=== PATIENT | female | born 1975 | race Caucasian/White ===

== ENCOUNTER 2017-12-14 13:46 | Emergency (ER) | payer MEDICAID, SELFPAY ==
[~2017-12-14] VITALS: Ht 154.9 cm; Wt 65.1 kg
[2017-12-14] MEDS ORDERED: KETOROLAC 30 MG/1 ML ONE (14:13)
[2017-12-14] MEDS ORDERED: ONDANSETRON ODT 4 MG ONE (14:13)
[2017-12-14] MEDS ORDERED: FAMOTIDINE 20 MG/2 ML ONE (14:21)
[2017-12-14] MEDS ORDERED: ONDANSETRON 2MG/ML, 2ML IVPush ONE (14:30)
[2017-12-14] MEDS ORDERED: KETOROLAC 30 MG/1 ML IVPush ONE (14:30)
[2017-12-14] MEDS ORDERED: SODIUM CHLORIDE 0.9% 1,000ML IVBOLUS ONE (14:30)
[2017-12-14] MEDS ORDERED: SODIUM CHLORIDE FLUSH 10ML SYR IVF ONE (14:30)
[2017-12-14] MEDS ORDERED: FAMOTIDINE 20 MG/2 ML IVP ONE (14:30)
[2017-12-14] MEDS ORDERED: ONDANSETRON ODT 4 MG PO ONE (14:30)
[2017-12-14 15:03] LABS: BASOPHILS # (AUTO) 0.11 x10^3/uL (0-0.1); BASOPHILS % (AUTO) 1 % (0-1); EOSINOPHILS # (AUTO) 0.28 x10^3/uL (0-0.4); EOSINOPHILS % (AUTO) 3 % (1-7); LYMPHOCYTES # (AUTO) 2.33 x10^3/uL (1-3.4); LYMPHOCYTES % (AUTO) 25 % (22-44); MD NO; MEAN CORPUSCULAR HEMOGLOBIN 27.1 pg (27.0-34.8); MEAN CORPUSCULAR HGB CONC 32.9 g/dL (32.4-35.8); MEAN CORPUSCULAR VOLUME 82.4 fL (80-100); MEAN PLATELET VOLUME 7.3 fL (7.4-10.4); MONOCYTES # (AUTO) 0.49 x10^3/uL (0.2-0.8); MONOCYTES % (AUTO) 5 % (2-9); NEUTROPHILS # (AUTO) 6.04 x10^3/uL (1.8-6.8); NEUTROPHILS % (AUTO) 65 % (42-75); PLATELET COUNT 415 x10^3/uL (130-400); RED BLOOD COUNT 4.06 x10^6/uL (3.82-5.3); RED CELL DISTRIBUTION WIDTH 13.7 % (9.6-15.2)
[2017-12-14 15:09] LABS: ALANINE AMINOTRANSFERASE 16 U/L (12-78); ALBUMIN 3.2 g/dL (3.4-5.0); ANION GAP 8 mmol/L (5-15); CALCIUM 8.1 mg/dL (8.5-10.1); CHLORIDE 105 mmol/L (98-107); CREATININE 0.86 mg/dL (0.55-1.02)
[2017-12-14 15:13] LABS: ALKALINE PHOSPHATASE 68 U/L (45-117); BILIRUBIN,TOTAL 0.3 mg/dL (0.2-1.0); TOTAL PROTEIN 7.2 g/dL (6.4-8.2)
[2017-12-14 16:03] LABS: MICROSCOPIC AUTO
[2017-12-14 16:06] LABS: CULTURE INDICATED? YES
[2017-12-14 16:11] VITALS: BP 103/63
[2017-12-14] MEDS ORDERED: ACETAMINOPHEN 500 MG TABLET PO ONE (16:30)
[2017-12-14] MEDS ORDERED: ACETAMINOPHEN 500 MG TABLET ONE (16:31)
== END 2017-12-14 16:45 | disposition home or self-care (01) ==
LOC: ED 15:28
DX: R11.2 Nausea with vomiting, unspecified (principal); G44.031 Episodic paroxysmal hemicrania, intractable; N30.00 Acute cystitis without hematuria; R63.0 Anorexia
CPT/HCPCS: 36415; 80053; 81001; 83690; 84703; 85025; 87077; 87086; 87186; 96361; 96374; 96375; 99284; J1885; J7030; S0028

== ENCOUNTER 2019-04-25 14:50 | Emergency (ER) | payer MEDICAID, OTHER ==
[~2019-04-25] VITALS: Ht 157.5 cm; Wt 54.0 kg
[2019-04-25 15:02] VITALS: BP 109/70
[2019-04-25] MEDS ORDERED: ASPIRIN 81 MG TABLET CHEW PO ONE (16:00)
[2019-04-25 16:15] LABS: BASOPHILS # (AUTO) 0.04 x10^3/uL (0-0.1); BASOPHILS % (AUTO) 0 % (0-1); EOSINOPHILS # (AUTO) 0.17 x10^3/uL (0-0.4); EOSINOPHILS % (AUTO) 2 % (1-7); LYMPHOCYTES # (AUTO) 1.99 x10^3/uL (1-3.4); LYMPHOCYTES % (AUTO) 24 % (22-44); MD NO; MEAN CORPUSCULAR HEMOGLOBIN 25.6 pg (27.0-34.8); MEAN CORPUSCULAR HGB CONC 31.7 g/dL (32.4-35.8); MEAN CORPUSCULAR VOLUME 80.8 fL (80-100); MEAN PLATELET VOLUME 6.7 fL (7.4-10.4); MONOCYTES # (AUTO) 0.78 x10^3/uL (0.2-0.8); MONOCYTES % (AUTO) 9 % (2-9); NEUTROPHILS # (AUTO) 5.39 x10^3/uL (1.8-6.8); NEUTROPHILS % (AUTO) 65 % (42-75); PLATELET COUNT 386 x10^3/uL (130-400); RED CELL DISTRIBUTION WIDTH 15.5 % (9.6-15.2)
[2019-04-25 16:28] LABS: ALBUMIN 3.2 g/dL (3.4-5.0); ANION GAP 4 mmol/L (5-15); CALCIUM 8.3 mg/dL (8.5-10.1); CHLORIDE 108 mmol/L (98-107); CREATININE 0.76 mg/dL (0.55-1.02)
[2019-04-25 16:32] LABS: TROPONIN I < 0.015 ng/mL (0.000-0.045)
== END 2019-04-25 16:55 | disposition home or self-care (01) ==
LOC: ED 15:33
DX: R07.89 Other chest pain (principal); F41.1 Generalized anxiety disorder; F17.200 Nicotine dependence, unspecified, uncomplicated
CPT/HCPCS: 36415; 71045; 80048; 82040; 84484; 85025; 93005; 99284

== ENCOUNTER 2019-11-21 10:00 | Emergency (ER) | payer OTHER ==
[~2019-11-21] VITALS: Ht 154.9 cm; Wt 61.0 kg
[2019-11-21] MEDS ORDERED: DIPH,PERTUSS(ACELL),TET VAC/PF 0.5 ML IM-VACC ONE ×2 (10:15→10:30)
[2019-11-21] MEDS ORDERED: NEOSPORIN OINT. PKT 1 PACKET ONE ×2 (10:22→10:35)
--- NOTE | 2019-11-21 10:24 | NUR ---
PT MEDICATED PER ORDERS. PT TO IMAGING.
--- NOTE | 2019-11-21 10:52 | NUR ---
PT'S WD CLEANED PER ORDERS. BACITRACIN PLACED PER ORDERS.
[2019-11-21] MEDS ORDERED: ACETAMINOPHEN 500 MG TABLET ONE (11:42)
--- NOTE | 2019-11-21 11:54 | NUR ---
TASK RN: CARE FOR DC ONLY PROVIDED. PT MEDICATED WITH 1000MG TYLENOL PER ORDER FOR 6/10 PAIN. NO IV TO DC. REVIEWED DC INSTRUCTIONS WITH PT. UNDERSTANDING VERBALIZED. PT LEFT AMB, GAIT STEADY.
[2019-11-21 11:55] VITALS: BP 119/71
[2019-11-21] MEDS ORDERED: ACETAMINOPHEN 500 MG TABLET PO ONE (12:00)
== END 2019-11-21 11:57 | disposition home or self-care (01) ==
LOC: ED 10:20
DX: S00.81XA Abrasion of other part of head, initial encounter (principal); S09.90XA Unspecified injury of head, initial encounter; X58.XXXA Exposure to other specified factors, initial encounter; Y93.89 Activity, other specified; Y92.69 Other specified industrial and construction area as the place of occurrence of the external cause; Y99.0 Civilian activity done for income or pay
CPT/HCPCS: 70450; 90471; 90715; 99284